=== PATIENT | female | born 1955 | race Caucasian/White ===

== ENCOUNTER → 2017-05-24 | Outpatient (CLI) | payer BC ==
--- NOTE | 2017-05-24 11:14 | PCVCIMAG ---
APPROVED REPORT Exam: Stress Echocardiogram Indication: CAD s/p CABG, Hypertension, Dyspnea Patient Location: Echo lab Stress Nurse: Mariely Mendes RN Room #: 2 Ht: 5 ft 9 in HR: 90 bpm BP: 96/60 mmHg Rhythm: RBBB Medical History Medical History: CAD s/p CABG, HTN, Hyperlipidemia Cardiac Risk Factors: HTN, Hyperlipidemia Previous Cardiac Procedures: CABG Pretest Chest Pain Characteristics: No chest pain Exercise History: Physically active Procedure The patient underwent an Exercise Stress Test using the Jose F Protocol. Blood pressure, heart rate, and EKG were monitored. An Echocardiogram was performed by perinatal technician in four stages in quad fashion. At peak stress, four selected images were obtained and placed side by side with resting images for comparison. Stress Test Details Stress Test: Exercise stress testing was performed using a Jose F protocol. HR Resting HR: 96 bpmMax Heart Rate (APMHR): 158 bpm Max HR Achieved: 150 bpmTarget HR (85% APMHR): 134 bpm % of APMHR: 94 Recovery HR: 99 bpm HR response to stress: Normal HR response to stress BP Resting BP: 96/60 mmHg Max BP: 160/80 mmHg Recovery BP: 124/70 mmHg ECG Resting ECG: RBBB Stress ECG: RBBB ST Change: Nondiagnostic Arrhythmia: OCASIONAL PVCs Recovery ECG: Sinus Rhythm, RBBB Recovery ST Change: Non-ischemic Recovery Arrhythmia: None Clinical Reason for Termination: Maximal effort Stress Symptoms: none Exercise duration: 7 min 33 sec Highest Stage Achieved: Stage 3: 3.4 mph at 14% grade. Exercise capacity: 10.1 METs Overall Exercise Capacity for Age: Poor Functional Aerobic Impairment 94% Angina Score: None Stress ECG Conclusion The patient exercised according to the Jose F Protocol for7:33 minutes, achieving a maximum work level of 10.1 METS. The resting heart rate of 90 bpm, charlene to a maximal level of 150 bpm. This value represents 94 % of the maximal, age-predicted heart rate. The resting blood pressure of96/60 mmHg, charlene to a maximum blood pressure of 160/80 mmHg. The exercise was stopped due to fatigue. Pre-Stress Echo The resting Echocardiogram showed normal left ventricular contractility with an estimated Ejection Fraction of about 55-60%. Normal wall motion in all segments on baseline images. Post-Stress Echo The stress Echocardiogram showed normal left ventricular contractility with an estimated Ejection Fraction of about 60-65%. Normal augmentation of wall motion in all segments on post stress images. Clinical No clinical or ECG evidence for ischemia. Conclusion Clinical Response: Non-ischemic Exercise Capacity: Average Stress ECG Response: Non-ischemic Stress Echo Images: Non-ischemic No clinical, EKG or echocardiographic evidence for ischemia. No echocardiographic evidence for exercise induced ischemia. Normal stress echocardiogram with maximal exercise stress. <Conclusion> No clinical, EKG or echocardiographic evidence for ischemia. No echocardiographic evidence for exercise induced ischemia. Normal stress echocardiogram with maximal exercise stress.
== END | disposition home or self-care (01) ==
LOC: PCVCIMAG 09:49
PROVIDERS: ATTEND Internal Medicine Cardiovascular Disease
DX: I25.10 Atherosclerotic heart disease of native coronary artery without angina pectoris (principal); I10 Essential (primary) hypertension; E78.5 Hyperlipidemia, unspecified; R06.00 Dyspnea, unspecified; Z95.1 Presence of aortocoronary bypass graft
CPT/HCPCS: 36415; 80061; 93325; 93351